=== PATIENT | female | born 1995 | race Caucasian/White ===

== ENCOUNTER 2016-09-01 04:40 | Inpatient (IN) | payer OTHER ==
[~2016-09-01] VITALS: Ht 175.3 cm; Wt 176.0 kg
[~2016-09-01 04:40] MED LIST: ALBUTEROL0.09 MG/A1 INH; ATIVAN0.5 M1 PO; BACTRIM DS 8001 TAB PO; BACTROBAN OINT.30 GM TOP; CEPHALEXIN500 MG PO; CLOBETASOL PROP50 M1 TOP; DEPO-PROVE150 MG/11 IM; DIPHENHYDRAMINE PO; DOXYCYCLINE HY100 MG PO; GENERESS FE 0.01 CTB PO; KEFLEX500 MG PO; LEVOTHROID SO0.05 MG PO; MEDROXYPROG150 MG/ML IM; METFORMIN ER500 MG PO; METFORMIN HYD1000 M1 PO; METOPROLOL SUC100 M2 PO; MOTRIN800 MG PO; PREDNISONE 20MG20 MG PO; PROAIR HFA0.09 MG/Ac INH; PROTONIX40 M3 PO; RIOMET500 MG/5 M PO; ROBITUSSIN W/CO10 ML PO; TAMIFLU 75MG75 MG; TOPROL XL25 M1 PO; TORADOL10 MG PO; VICODIN5-300 PO; ZITHROMAX Z-PA250 M1 PO
--- NOTE | 2016-09-01 12:06 | Admission Core Measures ---
Admission Lab Results I reviewed the following labs: Laboratory Tests 09/01 846 Urines Urine Test NEGATIVE Admission Meds I reviewed the following Meds: Current Medications Sig/Cierra Start time Last Medication Dose Stop Time Status Admin Cefazolin Sodium 3,000 MG ONCE 09/01 0000 NR (Kefzol-Ancef Inj) 09/01 2358 Heparin Sodium 5,000 UNIT ONCE 09/01 0000 NR (Porcine) 09/01 2358 Acute Coronary Syndrome Inclusion Criteria ACS Diagnosis No Inpatient Core Measures LDL Reminder: If No, please order W/I first 24hr of stay Congestive Heart Failure Inclusion Criteria CHF Diagnosis No Cerebrovascular accident Inclusion Criteria CVA/TIA Diagnosis No Inpatient Core Measures Bedside Swallow Eval Reminder: If BSE failed, place ST order Antithrombotic Reminder: Order Antithrombotic Medication by end of day 2 Antithrombotic Reminder: Document Reason Antithrombotic Not ordered by end of day 2 AFIB/Flutter Reminder: If Present, add to problem list AFIB/Flutter Reminder: Order Anticoag Medication for pts with AFIB/Flutter Atherosclerosis Reminder: If Present, add to problem list LDL Reminder: If No, please order W/I first 24hr of stay PT Order Reminder: If No, please order Venous thromboembolism Inpatient Core Measures VTE Risk Factors: Obesity, Oral contraception, Surgery No Mech VTE prophylaxis d/t No contraindications No VTE Pharm Prophylaxis d/t No contraindications Inclusion Criteria - Per Current guidelines, there needs to be overlap - treatment for the first 5 days of Warfarin therapy. - Parenteral Anticoagulation (IV or SC) needs to be - given along with Warfarin therapy. VTE Diagnosis No VTE Type NONE VTE Confirmed by (Test) NONE Problem List As ranked by this Provider includes Assessment & Plan 1. S/P laparoscopic sleeve gastrectomy HOME MEDS Home Med List Medroxyprogesterone Acetate (Depo-Provera) 150 MG/ML SYRINGE 1 ML IM Q3M CONTROL (Reported) Metoprolol Succinate 100 MG TAB.ER.24H 1 TAB PO DAILY HX V TACC (Reported) Pantoprazole Sodium (Protonix) 40 MG TABLET.DR 1 TAB PO DAILY PRN GERD ( Reported)
--- NOTE | 2016-09-01 12:15 | Operative Report ---
Operative/Inv Procedure Report Surgery Date: 09/01/16 Name of Procedure: Laparoscopic Sleeve Gastrectomy Pre-Operative Diagnosis: Morbid Obesity BMI 59, DM, HTN, KELLEY Post-Operative Diagnosis: Same Estimated Blood Loss: less than 50ml Surgeon/Escort Car Driver: CHARMAINE JOHANSEN DO Anesthesia: general endotracheal tube IV Fluids: 1600 cc Drains: 10 Fr RUQ JAIR Drain Specimens: Stomach Complications: None Condition: Stable Operative Indication: This is a 21-year-old female that presented to the office for workup for bariatric surgery. After appropriate workup was completed we discussed with the patient the band, the sleeve, and the gastric bypass. The patient chose to undergo a sleeve gastrectomy. All risks including but not limited to bleeding, infection, leak, stricture, injury to surrounding bowel/esophagus/stomach/liver/ spleen, long-term reflux, DVT/PE, and mortality of 05/999 patients were discussed in detail. The patient understood everything and decided to proceed. Operative/Procedure Note Note: The patient was brought to the operating room and placed on the operating room table in supine position. Venodyne stockings were placed and adequate general endotracheal anesthesia was obtained. The patient was prepped and draped in standard surgical fashion. Began the procedure by making a 2 cm transverse incision supraumbilically and slightly to the left of the midline. Then using a 12 mm clear Visiport and a 10 mm 0 laparoscope, the abdominal cavity was accessed. Great care was taken to go through the anterior rectus sheath, the posterior rectus sheath, and through the peritoneum. Once we entered the peritoneum the abdominal cavity was insufflated to 15 mmHg. Upon initial examination no obvious gross pathology was seen. Accessory trocars were placed, 5 mm in the epigastrium for the Mary liver retractor. The retractor was inserted and the liver was retracted anteriorly exposing the hiatus, no hiatal hernia was seen. 5 mm ports were placed in the right and left upper quadrant, a 5 mm left lateral port, and a 15 mm right lateral port. Began the procedure by mobilizing the greater curvature of the stomach approximately 7 cm from the pylorus. Once the retrogastric space was reached the whole greater curvature was mobilized maintaining hemostasis using Harmonic scalpel. Full hiatal dissection was performed, no hiatal hernia was seen. Posterior adhesions were taken down using Harmonic scalpel as well. Once the stomach was adequately mobilized a 38 Argentine bougie was inserted and placed along the lesser curvature of the stomach. Once the bougie was in the appropriate position will began creating our sleeve, two 60 mm black staple loads with seamguard followed by three 60 mm purple staple loads with seamguard as well and finished with 45 mm purple plain load. Great care was taken to leave ample room at the incisura angularis, to prevent any twisting or kinking of the sleeve, to stay lateral to the esophagogastric fat pad, and to do a full fundal excision. At the completion of the staple line the staple line was examined, it appeared intact and no obvious bleeding was noted. The bougie was removed, the sleeve was lying nicely without any twisting or kinking. The resected stomach was removed through the right lateral port site. The port and the left upper quadrant were irrigated until clear. A 10 Argentine JAIR drain was placed through the right upper quadrant incision under the liver and over the spleen. All ports were removed under direct visualization no obvious bleeding was noted. The 15 mm port site fascia was closed using 0 Vicryl suture. The skin was closed using 4-0 Monocryl. Steri-Strips and dressings were placed. The patient was successfully extubated and transferred to the recovery room in stable condition. The patient tolerated the procedure well with no complications. Findings: No hiatal hernia, 38 Fr bougie CC: MANDY FARLEY,CALEB Herrera
--- NOTE | 2016-09-01 15:24 | PN- Bariatrics ---
Subjective Subjective: The patient is seen this evening postoperatively. She reports some minor incisional discomfort and then she is otherwise comfortable. She had nausea earlier in the recovery room but currently currently denies any. She had no other complaints the current time denies any chest pain or difficulty breathing. Objective Vital Signs and I&Os Vital signs: Blood pressure 125/65, pulse 60, temperature 98.5, O2 sats saturation 97% on room air I's and O's: 2200 ML's in of lactated Ringer's/patient is due to void/JAIR 10 mL/ EBL less than 50 Physical Exam: Gen.: Alert and in no obvious distress Skin: Warm and dry Cardiac: S1-S2 regular Pulmonary: Bilateral breath sounds are equal and decreased at bases Abdomen: Soft, obese, appropriate incisional tenderness, bowel sounds sluggish. Port sites are slightly blood-tinged but otherwise intact. JAIR 1 holding suction with serosanguineous drainage in the bulb. Extremities: Bilateral lower extremities are warm without calf tenderness or significant edema. Assessment/Plan Assessment/Plan Assessment: 21-year-old female status post lap scopic sleeve gastrectomy. Postoperatively the patient is progressing as expected and her pain is under adequate control. Plan: Patient will be monitored on telemetry due to a history of SVT Stage I diet nothing by mouth past midnight for an upper GI in the morning Continue current pain regiment Strict I's and O's Monitor for postoperative void 2 doses of postoperative prophylactic antibiotics GI and DVT prophylaxis Lovenox education Out of bed and ambulate Core Measures/Miscellaneous Venous Thromboembolism VTE Risk Factors: Obesity, Surgery VTE Contraindications: No Contraindications VTE Diagnosis: No VTE Type: NONE VTE Confirmed by (Test): NONE Beta Jose Is Beta Jose a Home Med? Yes If Yes, Was This Ordered Today? Yes Antibiotics Is Patient on Antibiotics? Yes If Yes: prophylaxis
[2016-09-01 16:00] VITALS: BP 132/78
--- NOTE | 2016-09-01 23:59 | NUR ---
ALERTED SUFICAL PA THAT PT HAS BEEN BRADYCARDIC LOW 50. ALL OTHER VITALS STABLE. PT DENIES DIZZINESS, HEADACHE, CHANGES IN VISION. PER SUGICAL PA, WILL CONTINUE TO MONITOR.
[2016-09-02 00:04] VITALS: BP 132/72
--- NOTE | 2016-09-02 07:02 | PN- Bariatrics ---
See Addendum Subjective Subjective: The patient was seen this morning postoperatively day #1. She reports her pain is under adequate control and she was tolerating a stage I diet without nausea up until midnight. She had one bout of nausea in the middle the night which was self-limiting. She has no complaints at the current time. Objective Vital Signs and I&Os Vital Signs Date Time Temp Pulse Resp B/P Pulse O2 O2 Flow FiO2 Ox Delivery Rate 09/02 0004 98.3 50 20 132/72 95 Room Air 09/010 Room Air 09/01 2057 Room Air Room Air 09/02 1599 Room Air /1599 98.7 60 18 132/78 95 Room Air Intake & Output 09/02 0809/02 0000 09/01 0000 08/31 1600 Intake Total 1105 Output Total 630 Balance 475 Intake, IV 625 Intake, Oral 480 Output, 30 Drainage Output, Urine 600 Patient 389 lb Weight Physical Exam: Gen.: Alert and in no obvious distress Skin: Warm and dry Cardiac: S1-S2 regular Pulmonary: Bilateral breath sounds are equal and decreased at bases Abdomen: Soft, obese, appropriate incisional test, bowel sounds positive. Port sites are blood tinged but otherwise intact. JAIR 1 holding suction with serosanguineous drainage in the bulb. Extremities: Bilateral lower extremities are warm without calf tenderness or significant edema. Assessment/Plan Assessment/Plan Assessment: 21-year-old female status post lap scopic sleeve gastrectomy postoperative day #1. The patient is progressing as expected, her pain is under adequate control, and she is without nausea this morning. Plan: Cancel upper GI series this morning and start bariatric stage I diet Follow-up morning laboratory studies Out of bed and ambulate GI and DVT prophylaxis Lovenox education Reconsult nutrition for additional bariatric diet education Decrease IV fluids Core Measures/Miscellaneous Venous Thromboembolism VTE Risk Factors: Obesity, Surgery VTE Contraindications: No Contraindications VTE Diagnosis: No VTE Type: NONE VTE Confirmed by (Test): NONE Beta Jose Is Beta Jose a Home Med? Yes If Yes, Was This Ordered Today? Yes Antibiotics Is Patient on Antibiotics? No
[2016-09-02 08:01] VITALS: BP 122/64
[2016-09-02 08:23] LABS: ABSOLUTE BASOPHIL COUNT 0 /CUMM (0.0-0.2); ABSOLUTE EOSINOPHIL COUNT 0 /CUMM (0.0-0.7); ABSOLUTE GRANULOCYTE CT 8.2 /CUMM (1.4-6.5); ABSOLUTE MONOCYTE COUNT 0.5 /CUMM (0.10-0.60); BASOPHIL % 0.1 % (0.0-2.0); EOSINOPHIL % 0 % (0-5); HEMATOCRIT 38.9 % (37-47); MEAN CORPUSCULAR HGB 24.3 PG (27.0-31.0); MEAN CORPUSCULAR HGB CONC 31.9 G/DL (33.0-37.0); MEAN CORPUSCULAR VOLUME 76.3 FL (81.0-99.0); MEAN PLATELET VOLUME 10.6 FL (7.4-10.4); PLATELET COUNT 193 /CUMM (130-400); RBC DISTRIBUTION WIDTH 16.7 % (11.5-14.5); WHITE BLOOD CELL COUNT 9.7 /CUMM (4.8-10.8)
[2016-09-02 09:13] LABS: GRANULOCYTE % 84.5 % (42.2-75.2)
[2016-09-02] MEDS ORDERED: DILAUDID2 M1 PO (11:49)
[2016-09-02] MEDS ORDERED: MIRALAX17 G1 PO (11:49)
[2016-09-02] MEDS ORDERED: LOVENOX40 MG/0.1 SC ×2 (11:49→16:43)
[2016-09-02] MEDS ORDERED: COLACE100 M1 PO (11:49)
--- NOTE | 2016-09-02 11:57 | Patient Discharge Instructions ---
Discharge Instructions General Discharge Information You were seen/treated for: Morbid obesity You had these procedures: Laparoscopic Gastric sleeve Watch for these problems: persistent nausea, vomiting, increasing abdominal pain, temperature more than 101 any redness, unusual drainage from the incision site Do not soak the wound: Yes No bath, but you may shower: Yes Other wound care: Remove dressing when you get home leaving white strips intact until seen by your surgeon. Shower regularly but no bath Special Instructions: See pre-printed information packet Ambulate frequently May use Gas-X for gas pain Diet Continue normal diet: No Recommended Diet: Bariatric (YEARS), STAGE 2 DIET, POSTGASTRECTOMY DIET (THE) Activity Full Activity/No Limits: No Activity Self Limited: Yes Pounds, do NOT lift more than: 10 Activity Limited to: Weight bear as tolerated Acute Coronary Syndrome Inclusion Criteria At DC or during hospital stay patient has or had the following: ACS DIAGNOSIS No Discharge Core Measures Meds if any: Prescribed or Continued at Discharge Meds if any: NOT Prescribed or Continued at Discharge Congestive Heart Failure Inclusion Criteria At DC or during hospital stay patient has or had the following: CHF DIAGNOSIS No Discharge Core Measures Meds if any: Prescribed or Continued at Discharge Meds if any: NOT Prescribed or Continued at Discharge Cerebrovascular accident Inclusion Criteria At DC or during hospital stay patient has or had the following: CVA/TIA Diagnosis No Discharge Core Measures Meds if any: Prescribed or Continued at Discharge Meds if any: NOT Prescribed or Continued at Discharge Venous thromboembolism Inclusion Criteria VTE Diagnosis No VTE Type NONE VTE Confirmed by (Test) NONE Discharge Core Measures - Per Current guidelines, there needs to be overlap - treatment for the first 5 days of Warfarin therapy. - If discharged on Warfarin prior to 5 days of - overlap therapy, the patient will need to be - assessed for post discharge needs including - *Post discharge parental anticoagulation - *Warfarin and/or parental anticoagulation education - *Follow up date to check INR post discharge At least 5 days overlap therapy as Inpatient No Meds if any: Prescribed or Continued at Discharge Note: Overlap Therapy is Warfarin and Anticoagulant Meds if any: NOT Prescribed or Continued at Discharge
--- NOTE | 2016-09-02 12:05 | Discharge Summary ---
Visit Information Visit Dates Admission Date: 09/01/16 Discharge Date: 09/04/16 Hospital Course Course Attending Physician: CHARMAINE JOHANSEN DO Primary Care Physician: MANDY FARLEY,CALEB Herrera Consulting Request: Consulting Specialty: Cardiology Hospital Course: Patient was admitted after undergoing the scheduled procedure(laparoscopic sleeve gastrectomy) with Dr. Johansen.please see Dr. Conner's operative note for procedure detail. After a quick recovery in PACU she was admitted to surgical floor for postop care. She is tolerating a stage 1 bariatric diet. An upper GI study was deferred, as she has been doing well post-operatively. Post- op asymptomatic bradycardia, with heart rate in 40s-50s range, as she was monitored on telemetry continuously for a history of SVT. Her home med Toprol XL was held for several days post-op due to bradycardia. was consulted ( covering ) for evaluation and recommendations regarding this asymptomatic bradycardia. JAIR drain removed post-op day#2. Metoprolol was restarted at a lower dose on POD#2 evening, with continued monitoring on tele overnight to POD#3. Due to persistent "chest pain" that seemed pleuritic in nature, cardiology recommended pursuing a CTA to r/o PE on POD#3, which was finally done after multiple attempts at getting an adequate 20 guage peripheral iv, and was negative for PE. She was discharged home with adjusted dose of metoprolol, tramadol for pain, and lovenox (script given pre-op) to complete one week at home for blood clot risk reduction. She will follow up with next week. Complications: asymptomatic bradycardia, with metoprolol held post-op, in setting of hx SVT, metoprolol then restarted at 25 mg twice a day, postop day 3 patient was asymptomatic and heart rate improved Allergies: Coded Allergies: metformin (From GLUMETZA) (Mild, RASH SPECIFICALLY FROM GLUMETZA 08/24/15) pecan nut (Mild, RASH 08/24/15) Disposition Summary Disposition Principal Diagnosis: morbid obesity [BMI of 57], hx ana, hx gerd, hx asthma, hx SVT Additional Diagnosis: morbid obesity s/p lap sleeve gastrectomy post-operative asymptomatic bradycardia Discharge Disposition: home or self care Discharge Instructions General Discharge Information Code Status: Full Code Patient's Diet: stage 2 bariatric diet as tolerated weekly stage diet advancement, as directed, as tolerated Patient's Activity: No heavy lifting (less than 10 pounds ) ambulate as tolerated Follow-Up Instructions/Appts: hycet for pain control continue lovenox as prescribed continue protonix for 2-3 months post-op hold metoprolol until further directed by property economist due to bradycardia f/u with as directed f/u next week (appointment scheduled) Medications at Discharge Discharge Medications: Stop taking the following medications: Metoprolol Succinate (Metoprolol Succinate) 100 MG TAB.ER.24H ORAL DAILY Medroxyprogesterone Acetate (Depo-Provera) 150 MG/ML SYRINGE INTRAMUSC Every 3 months Continue taking these medications: Pantoprazole Sodium (Protonix) 40 MG TABLET.DR 1 Tablet ORAL DAILY Days = 60 Comments: Last Taken:09/04/16 Time:10 AM Start taking the following new medications: Enoxaparin Sodium (Lovenox) 40 MG/0.4 ML SYRINGE 1 Syringe Inject into fatty tissue DAILY Qty = 7 No Refills Instructions: PATIENT HAS PERSCRIPTION AT HOME Comments: Last Taken:09/04/16 Time:7 AM Metoprolol Tartrate (Metoprolol Tartrate) 25 MG TABLET 25 Milligram ORAL TWICE DAILY Qty = 60 No Refills Comments: Last Taken:09/04/16 Time:10 PM Hydrocodone/Acetaminophen (Hycet 7.5 MG-325 MG/15 Ml Soln) 7.5 MG-325 MG/15 ML SOLUTION 15 Milliliters ORAL Q4-6P as needed for PAIN Qty = 250 No Refills Tramadol HCl (Tramadol HCl) 50 MG TABLET 1 Tablet ORAL EVERY SIX HOURS NEEDED as needed for pain Qty = 30 No Refills Instructions: cush tablet Comments: Last Taken:09/04/16 Time:11 PM Copies To: MANDY FARLEY,CALEB Herrera; Annie FULTON MD; NIKOLAS CHEUNG MD
[2016-09-02 16:30] VITALS: BP 116/68
[2016-09-02] MEDS ORDERED: HYCET 7.5 MG-3473 ML PO (16:43)
--- NOTE | 2016-09-02 23:00 | NUR ---
NURSING NOTE; PT TOLERATING BARIATRIC STAGE 1 DIET. NOT PASSING FLATUS. MD AWARE. AMBULATING WELL IN HALLWAY. PT CONTINUES TO C/O 8/10 ABDOMINAL PAIN. "FEELS LIKE GAS PAIN" PAIN MEDS PRN WITH SOME EFFECT. RASH/IRRITAITON NOTED TO CHEEKS AND ALONG NOSE. NOT ITCHY, C/O "BURNING" MD AWARE. PT CONTINUES TO BE BRADYCARDIC AT TIMES. HR RANGING FROM 48-60 AT REST. HR INCREASED TO 80'S WHEN AMBULATING. ASYMPTOMATIC.
[2016-09-03 02:18] VITALS: BP 100/68
--- NOTE | 2016-09-03 08:09 | PN- Bariatrics ---
Subjective Subjective: No complaints. Ongoing asymptomatic bradycardia. No dizziness. No shortness of breath. Tolerating stage 1 bariatric diet. Some intermittent nausea unrelated to drinking. She is willing to try hycet elixir again. Passing flatus but no bm yet. Voiding well. Ambulating without difficulty. Anxious about her heart rate. Objective Vital Signs and I&Os Vital Signs Date Time Temp Pulse Resp B/P Pulse O2 O2 Flow FiO2 Ox Delivery Rate 09/03 0218 97.7 48 20 100/68 97 Room Air 09/03 0000 97 Room Air 09/02 1630 98.1 56 20 116/68 97 Room Air 09/02 1049 54 Intake & Output 09/03 1600 09/03 0800 09/03 0000 09/02 1600 09/02 0800 09/02 0000 Intake Total 0 9480 326 6037 1105 Output Total 10 25 5 902 630 Balance -10 975 895 128 475 Intake, IV 300 305 3779 625 Intake, Oral 0 400 300 30 480 Number 0 0 0 Bowel Movements Output, 10 25 5 2 30 Drainage Output, Urine 900 600 Patient 389 lb Weight Physical Exam: General - alert & oriented x 3. comfortable. no acute distress. Lungs - clear bilaterally. no w/r/r. Cardiac - s1s2. bradycardic, rate 40s-50s Abdomen - soft. dressings c/d/i. JAIR drain with serosang drainage (10mls emptied overnight). expected rita-incisional tenderness. Extremities - warm bilaterally. no c/c/e. calves soft and nontender b/l. Assessment/Plan Assessment/Plan This 21-year-old female with hx svt, ana, gerd, asthma, is POD#2 s/p lap sleeve gastrectomy, ongoing asymptomatic bradycardia tolerating stage 1 bariatric diet willing to try hycet elixir again for pain control lovenox teaching prior discharge home continue protonix daily - gi ppx continue to hold metoprolol f/u ekg and labs f/u cardiology consult (tani on vacation, covering) oob/ambulating JAIR drain removed likely d/c home today pending cleared by cards will d/w Core Measures/Miscellaneous Venous Thromboembolism VTE Risk Factors: Obesity, Surgery VTE Contraindications: No Contraindications VTE Diagnosis: No VTE Type: NONE VTE Confirmed by (Test): NONE Beta Jose Is Beta Jose a Home Med? Yes If Yes, Was This Ordered Today? Yes Antibiotics Is Patient on Antibiotics? No
[2016-09-03 08:29] VITALS: BP 124/68
--- NOTE | 2016-09-03 09:20 | Cons- Cardiology ---
GIOVANA FARLEY,AZAM 09/03/16 0919: General Information and HPI Consulting Request Date of Consult: 09/03/16 Requested By: CHARMAINE JOHANSEN DO Reason for Consult: POST-OP BRADYCARDIA Source of Information: patient Exam Limitations: no limitations History of Present Illness: Miss Victor is a 21 year old female, with a medical history of supraventricular tachycardia versus nonsustained ventricular tachycardia (patient unsure which one it is, sees Dr. Quijano), insulin resistance who recently underwent sleeve gastrectomy 2 days ago. She states that initially the symptoms of palpitations started over a year ago she saw Dr. Ellis and was started on metoprolol 25 mg. Prior to her bariatric surgery, cardiac clearance was requested, she underwent an exercise stress test and upon 30 seconds of exercise, recurrent ventricular tachyarrhythmia was noted, she saw Dr. Quijano and her metoprolol was increased to 100 mg daily. We were asked to see her in consultation as postop she has persistently been bradycardic with a heart rate in the 40s and 50s. At present she is sitting comfortably in her recliner, offers no complaints other than her abdomen being sore postoperatively. Admits to having one episode of chest pain yesterday evening. States that while in the operating room the anesthesiologist did give her an extra beta dung in order to avoid these tachyarrhythmias. She did not get her beta dung yesterday. Allergies/Medications Allergies: Coded Allergies: metformin (From GLUMETZA) (Mild, RASH SPECIFICALLY FROM GLUMETZA 08/24/15) pecan nut (Mild, RASH 08/24/15) Home Med List: Enoxaparin Sodium (Lovenox) 40 MG/0.4 ML SYRINGE 1 SYR SC DAILY DVT PROPHYLAXSIS PATIENT HAS PERSCRIPTION AT HOME Hydrocodone/Acetaminophen (Hycet 7.5 MG-325 MG/15 Ml Soln) 7.5 MG-325 MG/15 ML SOLUTION 15 ML PO Q4-6P PRN PAIN Medroxyprogesterone Acetate (Depo-Provera) 150 MG/ML SYRINGE 1 ML IM Q3M CONTROL (Reported) Metoprolol Succinate 100 MG TAB.ER.24H 1 TAB PO DAILY HX V TACC (Reported) Pantoprazole Sodium (Protonix) 40 MG TABLET.DR 1 TAB PO DAILY ulcer risk reduction (Reported) Review of Systems Review of Systems Constitutional: Reports: see HPI. 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 Home Smoking Status: Unknown If Ever Smoked Exam & Diagnostic Data Vital Signs and I&O Vital Signs Date Time Temp Pulse Resp B/P Pulse O2 O2 Flow FiO2 Ox Delivery Rate 09/03 0829 98.6 72 20 124/68 97 Room Air 09/03 0218 97.7 48 20 100/68 97 Room Air 09/03 0000 97 Room Air 09/02 1630 98.1 56 20 116/68 97 Room Air 09/02 1049 54 Intake & Output 09/03 1600 09/03 0800 / 0000 09/02 1600 09/02 0800 / 0000 Intake Total 0 7036 480 3574 1105 Output Total 10 25 5 902 630 Balance -10 975 895 128 475 Intake, IV 150 208 0421 625 Intake, Oral 0 400 300 30 480 Number 0 0 0 Bowel Movements Output, 10 25 5 2 30 Drainage Output, Urine 900 600 Patient 389 lb Weight Physical Exam General Appearance: well developed/nourished, no apparent distress, alert, awake Eyes: Bilateral: normal appearance, PERRL, EOMI. Ears, Nose, Throat: normal pharynx, normal ENT inspection Respiratory: normal breath sounds, chest non-tender, no respiratory distress Cardiovascular: regular rate/rhythm Gastrointestinal: normal bowel sounds, soft, non-tender Extremities: normal inspection, normal capillary refill, normal range of motion Labs/Vargas Results: Laboratory Tests 09/03 09/02 0820 0643 Chemistry Sodium Pending Potassium Pending Chloride Pending Carbon Dioxide Pending Anion Gap Pending BUN Pending Creatinine Pending BUN/Creatinine Ratio Pending Glucose Pending Magnesium Pending Hematology CBC w Diff Pending NO MAN DIFF REQ WBC (4.8 - 10.8 /CUMM) Pending 9.7 RBC (4.20 - 5.40 /CUMM) Pending 5.10 Hgb (12.0 - 16.0 G/DL) Pending 12.4 Hct (37 - 47 %) Pending 38.9 MCV (81.0 - 99.0 FL) Pending 76.3 L MCH (27.0 - 31.0 PG) Pending 24.3 L RDW (11.5 - 14.5 %) Pending 16.7 H Plt Count (130 - 400 /CUMM) Pending 193 MPV (7.4 - 10.4 FL) Pending 10.6 H Gran % (42.2 - 75.2 %) 84.5 H Lymphocytes % (20.5 - 51.1 %) 10.5 L Monocytes % (1.7 - 9.3 %) 4.9 Eosinophils % (0 - 5 %) 0 Basophils % (0.0 - 2.0 %) 0.1 Absolute Granulocytes (1.4 - 6.5 /CUMM) 8.2 H Absolute Lymphocytes (1.2 - 3.4 /CUMM) 1.0 L Absolute Monocytes (0.10 - 0.60 /CUMM) 0.5 Absolute Eosinophils (0.0 - 0.7 /CUMM) 0 Absolute Basophils (0.0 - 0.2 /CUMM) 0 PUBS MCHC (33.0 - 37.0 G/DL) Pending 31.9 L Diagnostic Data EKG Results Rate 52, normal intervals, sinus bradycardia Assessment/Plan Assessment/Plan Assessment- 1. Postoperative bradycardia, unclear etiology 2. Insulin resistance 3. History of SVT versus nonsustained VT (we do not have previous cardiology reports) 4. Postop day 2 status post sleeve gastrectomy Plan- - hold beta dung for now - Continue telemetry monitoring - Add on troponin to yesterday's labs, and today's labs - Add on thyroid studies to today's labs - Urgent echocardiogram, r/o regional wall motion abnormalities - Electrolytes from this morning's blood draw still pending Consult Acknowledgment - Thank you for your consult request. KIRSTIN FARLEY,MARISA Maurice 09/03/16 8820: Assessment/Plan Assessment/Plan Attending addendum: The patient was seen and examined by me. The case was discussed with the patient, her mother, and the house staff physicians. All available data, including EKGs were reviewed by me. The patient appears to be generally stable postoperatively. I will follow her outside cardiology records. Her bradycardia is likely related to her beta blockers. In view of her past history, her beta dung dose should be continued. Consider restarting at 25 BID today and reassess in AM for increasing back to outpatient dose. Otherwise, the sinus bradycardia does not appear to be a major issue. Otherwise, the patient has been having episodes of central chest discomfort postoperatively. These episodes are intermittent. She notes that there is a slight pleuritic component to the discomfort when present. As noted above, follow-up EKG, troponin, etc. pending. For now, I would monitor the patient overnight pending those results. If she remains stable, and her symptoms improve, and the above is unremarkable, consider discharge in 24 hours. If the above findings are unremarkable, and the patient's symptoms are persistent, reassess for other possible issues such as occult pulmonary emboli, etc. Consult Acknowledgment - Thank you for your consult request.
[2016-09-03 09:26] LABS: ABSOLUTE BASOPHIL COUNT 0 /CUMM (0.0-0.2); ABSOLUTE EOSINOPHIL COUNT 0 /CUMM (0.0-0.7); ABSOLUTE LYMPH COUNT 3.4 /CUMM (1.2-3.4); ABSOLUTE MONOCYTE COUNT 0.6 /CUMM (0.10-0.60); BASOPHIL % 0.3 % (0.0-2.0); EOSINOPHIL % 0.1 % (0-5); GRANULOCYTE % 55.4 % (42.2-75.2); MEAN CORPUSCULAR HGB 24.6 PG (27.0-31.0); MEAN CORPUSCULAR HGB CONC 32.5 G/DL (33.0-37.0); MEAN CORPUSCULAR VOLUME 75.6 FL (81.0-99.0); MEAN PLATELET VOLUME 10.7 FL (7.4-10.4); PLATELET COUNT 195 /CUMM (130-400); RED BLOOD CELL CT 5.16 /CUMM (4.20-5.40); WHITE BLOOD CELL COUNT 8.9 /CUMM (4.8-10.8)
[2016-09-03 16:33] VITALS: BP 110/64
--- NOTE | 2016-09-03 17:56 | NUR ---
LATE ENTRY - REPORTED TO KALA CLINTON THAT PATIENT CONTINUES TO BE NAUSEOUS AND IS NOT TAKING PO LIQUIDS WELL; JHONATHAN DID NOT WORK FOR HER THIS AM. KALA ORDERED REGLAN IV & THIS RN ADMINISTERED THIS MED.
--- NOTE | 2016-09-03 19:52 | ECHOCARDIOGRAM REPORT ---
LINDA ARSHAD Age: 21 : 1995 Gender: F Exam Date: 09/03/2016 11:24 Exam Location: [place] Ht (in): 69 Wt (lb): 389 BSA: 3.04 BP: 124 / 68 Ordering Physician: SIMRAN LEO PA Referring Physician: SIMRAN LEO PA Technologist: Emanuel Post Room Number: Indications: CHEST PAIN, ARRHYTHMIAS Rhythm: Sinus Technical Quality: Fair, Technically difficult study FINDINGS Left Ventricle Normal size left ventricle. No obvious regional wall motion abnormalities. Normal left ventricular ejection fraction estimated at 55-60%. Right Ventricle Right ventricle not well visualized, grossly normal. Right ventricle at upper limits of normal. Right Atrium Normal right atrial size. Left Atrium Mild left atrial dilatation. Mitral Valve Mitral valve thickened. Trace to mild mitral regurgitation. Aortic Valve Structurally normal trileaflet aortic valve. No aortic stenosis. No aortic regurgitation. Tricuspid Valve Tricuspid valve not well visualized, grossly normal. Trace to mild tricuspid regurgitation. Pulmonic Valve Pulmonic valve not well visualized, grossly normal. Pericardium No pericardial effusion. Great Vessels Aortic root and proximal ascending aorta not well visualized, grossly normal. CONCLUSIONS 1. This was a technically limited examination due to the patients body habitus 2. The aortic valve appears to be trileaflet and normal. 3. Mild thickening of the mitral leaflets is present with minimal to mild mitral insufficiency and mild left atrial enlargement. 4. There is no significant pericardial fluid present. 5. The left ventricular chamber size and systolic function appear normal. Accurate wall motion assessment was not possible due to the quality of the images obtained. 6. The right heart structures were not optimally assessed. Minimal to mild tricuspid insufficiency is present with no evidence of pulmonary hypertension. Jorge Garcia M.D. (Electronically Signed) Final Date: 03 September 2016 19:52 MEASUREMENTS (Male / Female) Normal Values 2D ECHO LV Diastolic Diameter PLAX 5.4 cm 4.2 - 5.9 / 3.9 - 5.3 cm LV Systolic Diameter PLAX 3.6 cm 2.1 - 4.0 cm LV Fractional Shortening PLAX 33.3 % 25 - 46 % LV Ejection Fraction 2D Teich 61.5 % IVS Diastolic Thickness 1.1 cm LVPW Diastolic Thickness 1.0 cm LV Relative Wall Thickness 0.4 LVOT Diameter 2.4 cm Aortic Root Diameter 2.6 cm LA Systolic Diameter LX 3.3 cm 3.0 - 4.0 / 2.7 - 3.8 cm DOPPLER AV Peak Velocity 154.0 cm/s AV Peak Gradient 9.5 mmHg AV Mean Velocity 106.0 cm/s AV Mean Gradient 5.0 mmHg AV Velocity Time Integral 33.8 cm LVOT Peak Velocity 119.0 cm/s LVOT Peak Gradient 5.7 mmHg LVOT Mean Velocity 73.8 cm/s LVOT Mean Gradient 3.0 mmHg LVOT Velocity Time Integral 27.2 cm LVOT Stroke Volume 123.0 cm AV Area Cont Eq vti 3.6 cm AV Area Cont Eq pk 3.5 cm Mitral E Point Velocity 147.5 cm/s Mitral A Point Velocity 44.4 cm/s Mitral E to A Ratio 3.3 MV Deceleration Time 165.0 ms MR Peak Velocity 385.0 cm/s MR Peak Gradient 59.3 mmHg TR Peak Velocity 287.0 cm/s TR Peak Gradient 32.9 mmHg Right Atrial Pressure 5.0 mmHg Pulmonary Artery Systolic Pressu 37.9 mmHg Right Ventricular Systolic Press 37.9 mmHg PV Peak Velocity 107.0 cm/s PV Peak Gradient 4.6 mmHg PV Mean Velocity 75.1 cm/s PV Mean Gradient 2.0 mmHg PV Velocity Time Integral 24.8 cm LV E' Lateral Velocity 16.1 cm/s Mitral E to LV E' Lateral Ratio 9.2 LV E' Septal Velocity 9.7 cm/s Mitral E to LV E' Septal Ratio 15.3
[2016-09-04 07:43] VITALS: BP 118/70
[2016-09-04 07:53] LABS: ABSOLUTE BASOPHIL COUNT 0 /CUMM (0.0-0.2); ABSOLUTE EOSINOPHIL COUNT 0 /CUMM (0.0-0.7); ABSOLUTE GRANULOCYTE CT 5.9 /CUMM (1.4-6.5); ABSOLUTE LYMPH COUNT 0.9 /CUMM (1.2-3.4); ABSOLUTE MONOCYTE COUNT 0.1 /CUMM (0.10-0.60); BASOPHIL % 0.1 % (0.0-2.0); EOSINOPHIL % 0.1 % (0-5); HEMATOCRIT 38.8 % (37-47); MEAN CORPUSCULAR HGB 24.3 PG (27.0-31.0); MEAN CORPUSCULAR HGB CONC 31.8 G/DL (33.0-37.0); MEAN CORPUSCULAR VOLUME 76.2 FL (81.0-99.0); MEAN PLATELET VOLUME 10.5 FL (7.4-10.4); PLATELET COUNT 197 /CUMM (130-400); RED BLOOD CELL CT 5.09 /CUMM (4.20-5.40); WHITE BLOOD CELL COUNT 6.9 /CUMM (4.8-10.8)
[2016-09-04 08:09] LABS: GRANULOCYTE % 84.6 % (42.2-75.2)
--- NOTE | 2016-09-04 09:57 | PN- Bariatrics ---
See Addendum Subjective Subjective: Postop day 3 status post laparoscopic sleeve gastrectomy. Patient woke this morning feeling well, no nausea, no vomiting, she is passing gas however no bowel movement yet. She has no fever or flulike illness. She has no symptoms of bradycardia feeling lightheaded dizzy or weak. Overall she feels much better today than yesterday. Objective Vital Signs and I&Os Vital Signs Date Time Temp Pulse Resp B/P Pulse O2 O2 Flow FiO2 Ox Delivery Rate 09/04 0643 98.6 48 118/70 97 09/03 2200 97 Room Air 09/03 2152 63 09/03 1739 61 110/64 09/03 1633 99.1 60 20 110/64 97 Room Air 09/03 1400 97 Room Air Intake & Output 09/04 1600 09/04 0800 09/04 0000 09/03 1600 09/04 0700 09/03 0000 Intake Total 660 900 660 0 1000 Output Total 10 25 Balance 660 900 660 -10 975 Intake, IV 600 600 600 600 Intake, Oral 60 300 60 0 400 Number 0 0 0 0 0 Bowel Movements Output, 10 25 Drainage Physical Exam: Well-developed well-nourished obese female no apparent distress. HEENT: Atraumatic, extraocular motion intact Neck: Supple, no lymphadenopathy Respiratory: No respiratory distress Heart rate is regular Abdomen: Obese, soft, nontender, nondistended, portal sites are clean dry and intact Extremities: No edema, no calf pain Neuro: Alert and oriented x3 Psych: Mood affect normal, normal memory normal judgment. Skin: Warm and dry, no rash on exposed skin Results Last 48 Hours of Labs: Laboratory Tests 09/04 09/03 0610 1435 Chemistry Sodium (137 - 145 mmol/L) 141 Potassium (3.5 - 5.1 mmol/L) 4.3 Chloride (98 - 107 mmol/L) 111 H Carbon Dioxide (22 - 30 mmol/L) 20 L Anion Gap (5 - 16) 11 BUN (7 - 17 mg/dL) 7 Creatinine (0.5 - 1.0 mg/dL) 0.6 Estimated GFR (>60 ml/min) > 60 BUN/Creatinine Ratio (7 - 25 %) 11.7 Troponin I (< 0.11 ng/ml) < 0.01 < 0.01 Hematology CBC w Diff MAN DIFF ORDERED WBC (4.8 - 10.8 /CUMM) 6.9 RBC (4.20 - 5.40 /CUMM) 5.09 Hgb (12.0 - 16.0 G/DL) 12.3 Hct (37 - 47 %) 38.8 MCV (81.0 - 99.0 FL) 76.2 L MCH (27.0 - 31.0 PG) 24.3 L RDW (11.5 - 14.5 %) 17.0 H Plt Count (130 - 400 /CUMM) 197 MPV (7.4 - 10.4 FL) 10.5 H Gran % (42.2 - 75.2 %) 84.6 H Lymphocytes % (20.5 - 51.1 %) 13.5 L Monocytes % (1.7 - 9.3 %) 1.7 Eosinophils % (0 - 5 %) 0.1 Basophils % (0.0 - 2.0 %) 0.1 Absolute Granulocytes (1.4 - 6.5 /CUMM) 5.9 Absolute Lymphocytes (1.2 - 3.4 /CUMM) 0.9 L Absolute Monocytes (0.10 - 0.60 /CUMM) 0.1 L Absolute Eosinophils (0.0 - 0.7 /CUMM) 0 Absolute Basophils (0.0 - 0.2 /CUMM) 0 Platelet Estimate (ADEQUATE) VERIFIED BY SMEAR Hypochromic-Microcytic 1+ Poikilocytosis 1+ Anisocytosis 1+ Microcytic Cells 1+ Ovalocytes 1+ [place] Cells 1+ PUBS MCHC (33.0 - 37.0 G/DL) 31.8 L / 0820 Chemistry Sodium (137 - 145 mmol/L) 144 Potassium (3.5 - 5.1 mmol/L) 4.1 Chloride (98 - 107 mmol/L) 113 H Carbon Dioxide (22 - 30 mmol/L) 21 L Anion Gap (5 - 16) 10 BUN (7 - 17 mg/dL) 8 Creatinine (0.5 - 1.0 mg/dL) 0.7 Estimated GFR (>60 ml/min) > 60 BUN/Creatinine Ratio (7 - 25 %) 11.4 Glucose (65 - 99 mg/dL) 81 Magnesium (1.6 - 2.3 mg/dL) 1.8 Troponin I (< 0.11 ng/ml) < 0.01 TSH (0.270 - 4.200 uIU/mL) 3.130 Thyroxine (T4) (4.5 - 10.9 ug/dL) 11.0 H Total T3 (0.97 - 1.69 ng/mL) 0.95 L Cortisol AM Sample (4.46 - 22.7 ug/dL) 1.0 L Hematology CBC w Diff NO MAN DIFF REQ WBC (4.8 - 10.8 /CUMM) 8.9 RBC (4.20 - 5.40 /CUMM) 5.16 Hgb (12.0 - 16.0 G/DL) 12.7 Hct (37 - 47 %) 39.0 MCV (81.0 - 99.0 FL) 75.6 L MCH (27.0 - 31.0 PG) 24.6 L RDW (11.5 - 14.5 %) 17.0 H Plt Count (130 - 400 /CUMM) 195 MPV (7.4 - 10.4 FL) 10.7 H Gran % (42.2 - 75.2 %) 55.4 Lymphocytes % (20.5 - 51.1 %) 37.6 Monocytes % (1.7 - 9.3 %) 6.6 Eosinophils % (0 - 5 %) 0.1 Basophils % (0.0 - 2.0 %) 0.3 Absolute Granulocytes (1.4 - 6.5 /CUMM) 5.0 Absolute Lymphocytes (1.2 - 3.4 /CUMM) 3.4 Absolute Monocytes (0.10 - 0.60 /CUMM) 0.6 Absolute Eosinophils (0.0 - 0.7 /CUMM) 0 Absolute Basophils (0.0 - 0.2 /CUMM) 0 PUBS MCHC (33.0 - 37.0 G/DL) 32.5 L Assessment/Plan Assessment/Plan This 21-year-old female with hx svt, ana, gerd, asthma, is POD#3 s/p lap sleeve gastrectomy tolerating stage 1 bariatric diet, advance to stage II lovenox teaching prior discharge home labs wnl this am continue protonix daily - gi ppx Appreciate cardiology input, heart rate better overnight, will await final cardiology input this morning prior to discharge oob/ambulating likely d/c home today pending cleared by cards Patient seen and examined with Dr. Matias Core Measures/Miscellaneous Venous Thromboembolism VTE Risk Factors: Obesity, Surgery VTE Contraindications: No Contraindications VTE Diagnosis: No VTE Type: NONE VTE Confirmed by (Test): NONE Beta Jose Is Beta Jose a Home Med? Yes If Yes, Was This Ordered Today? Yes Antibiotics Is Patient on Antibiotics? No
[2016-09-04] MEDS ORDERED: TRAMADOL HCL50 M1 PO (10:02)
[2016-09-04] MEDS ORDERED: METOPROLOL TART25 M1 PO (15:36)
--- NOTE | 2016-09-04 15:59 | PN- Cardiology ---
Subjective Subjective: Ambulating well, but continues to have chest discomfort "gas pain". This feels worse when she lays down and improves when she sits up or lays on her right side. She thinks it feels improved after she takes medication for "gas". On telemetry her heart rate has varied from 46-70 bpm on metoprolol 25 mg twice daily. This was decreased from the 50 mg twice daily she had been on for previously documented VT. Objective Vital Signs and I&Os Vital Signs Date Time Temp Pulse Resp B/P Pulse O2 O2 Flow FiO2 Ox Delivery Rate 09/04 1000 60 118/70 09/04 0743 98.6 48 118/70 97 09/03 2200 97 Room Air 09/03 2152 63 09/03 1739 61 110/64 09/03 1633 99.1 60 20 110/64 97 Room Air Intake & Output 09/04 1600 09/04 0800 09/04 0000 09/03 1600 09/03 0800 09/03 0000 Intake Total 660 900 660 0 1000 Output Total 10 25 Balance 660 900 660 -10 975 Intake, IV 600 600 600 600 Intake, Oral 60 300 60 0 400 Number 0 0 0 0 0 Bowel Movements Output, 10 25 Drainage Patient 388 lb Weight Physical Exam: Well-developed, morbidly obese young adult female in no acute distress. Lungs: Clear to auscultation bilaterally. Heart: S1, S2 with no murmur, gallop, or rub appreciated. I not well felt. Extremities: No edema. Current Medications: Current Medications Sig/Cierra Start time Last Medication Dose Route Stop Time Status Admin Acetaminophen 1,000 MG Q6P PRN 09/02 2245 AC 09/03 N/A 1 UNIT IV 0657 Acetaminophen/ 15 ML Q6P PRN 09/01 1630 AC 09/03 Hydrocodone Bitart PO 1734 Bisacodyl 10 MG ONCE ONE 09/04 08 DC CA 09/04 0801 Dexamethasone 8 MG ONCE ONE 09/03 1730 DC 09/03 IV PUSH 09/03 1731 2256 Dextrose/Sodium 1,000 ML Q13H 09/03 2315 DC 09/03 Chloride IV 2328 Enoxaparin Sodium 40 MG 0600 09/02 0600 AC 09/04 SC 0649 Ketorolac 30 MG Q6 09/03 2359 AC Tromethamine IV Ketorolac 30 MG Q6P PRN 09/01 1630 DC 09/02 Tromethamine IV 1947 Metoprolol Tartrate 25 MG BID 09/03 1430 AC 09/04 PO 1000 Ondansetron HCl 4 MG Q6P PRN 09/01 1630 AC 09/03 IV 0944 Pantoprazole Sodium 40 MG DAILY 09/01 1211 AC 09/04 IV 0958 Potassium Chloride 20 MEQ Q8H 09/01 2300 DC 09/03 Dextrose/Sodium 1,000 ML IV 1735 Chloride Simethicone 80 MG Q6P PRN 09/03 2330 AC 09/04 PO 1524 Simethicone 40 MG Q6P PRN 09/01 1630 DC 09/03 PO 1445 Tramadol HCl 100 MG Q4 PRN 09/03 1945 CAN PO Tramadol HCl 50 MG Q4P PRN 09/03 1930 AC 09/04 PO 1234 Results Last 48 Hrs of Labs/Mics: Laboratory Tests 09/04/16 0610: Anion Gap 11, Estimated GFR > 60, BUN/Creatinine Ratio 11.7, Troponin I < 0.01, CBC w Diff MAN DIFF ORDERED, RBC 5.09, MCV 76.2 L, MCH 24.3 L, RDW 17.0 H, MPV 10.5 H, Gran % 84.6 H, Lymphocytes % 13.5 L, Monocytes % 1.7, Eosinophils % 0.1, Basophils % 0.1, Absolute Granulocytes 5.9, Absolute Lymphocytes 0.9 L, Absolute Monocytes 0.1 L, Absolute Eosinophils 0, Absolute Basophils 0, Platelet Estimate VERIFIED BY SMEAR, Hypochromic-Microcytic 1+, Poikilocytosis 1 +, Anisocytosis 1+, Microcytic Cells 1+, Ovalocytes 1+, [place] Cells 1+, PUBS MCHC 31.8 L 09/03/16 1435: Troponin I < 0.01 09/03/16 0820: Anion Gap 10, Estimated GFR > 60, BUN/Creatinine Ratio 11.4, Glucose 81, Magnesium 1.8, Troponin I < 0.01, TSH 3.130, Thyroxine (T4) 11.0 H, Total T3 0.95 L, Cortisol AM Sample 1.0 L, CBC w Diff NO MAN DIFF REQ, RBC 5.16, MCV 75.6 L, MCH 24.6 L, RDW 17.0 H, MPV 10.7 H, Gran % 55.4, Lymphocytes % 37.6, Monocytes % 6.6, Eosinophils % 0.1, Basophils % 0.3, Absolute Granulocytes 5.0, Absolute Lymphocytes 3.4, Absolute Monocytes 0.6, Absolute Eosinophils 0, Absolute Basophils 0, PUBS MCHC 32.5 L Assessment/Plan Assessment/Plan 21-year-old morbidly obese female s/p bariatric (gastric sleeve) with previously documented T for which she was placed on beta dung therapy, that had to be held and then restarted at a lower dosage (metoprolol 25 mg twice daily) as a result of who has also been complaining of recurrent chest discomfort with a pleuritic component. As her heart rate has still been on the relatively slow side, would continue her on the metoprolol 25 mg twice daily and have her follow-up with her attending editing internship/die repairer trimmer dies (Drs. Ellis and Macie) for further outpatient evaluation and management. Unfortunately, the CT scan is "down" and will not be up and running until at least 7 PM tonight and there are multiple patients in the ED for whom CT scanning has already been. Discussed management options with surgery and the plan will be to have her get d -dimer, NT-PRO BNP, and troponin I levels and follow-up with a CT scan if any are significantly elevated. Continue telemetry? Yes symptoms of palpitations started over a year ago she saw Dr. Ellis and was started on metoprolol 25 mg. Prior to her bariatric surgery, cardiac clearance was requested, she underwent an exercise stress test and upon 30 seconds of exercise, recurrent ventricular tachyarrhythmia was noted, she saw Dr. Quijano and her metoprolol was increased to 100 mg daily. We were asked to see her in consultation as postop she has persistently been bradycardic with a heart rate in the 40s and 50s. At present she is sitting comfortably in her recliner, offers no complaints other than her abdomen being sore postoperatively. Admits to having one episode of chest pain yesterday evening. States that while in the operating room the anesthesiologist did give her an extra beta dung in order to avoid these tachyarrhythmias. She did not get her beta dung yesterday. Continue telemetry? Yes
[2016-09-04 16:00] VITALS: BP 116/74
[2016-09-04 21:50] VITALS: BP 118/60
--- NOTE | 2016-09-04 22:56 | NUR ---
LATE NURSING ENTRY: CT ANGIO ORDERED, PATIENT DOES NOT HAVE SUFFICIENT IV ACCESS MULTIPLE UNSUCCESFUL ATTEMPTS BY MULTIPLE RN'S INCLUDING NURSE GROUNDS CREW SUPERVISOR. SURGICAL PA MADE AWARE AND IN ROOM WITH FAMILY. PATIENT VSS, PATIENT UNDERSTAND PLAN. WCTM.
--- NOTE | 2016-09-04 23:17 | CT SCAN REPORT ---
EXAMINATION: CT ANGIOGRAM OF THE CHEST WITH AND WITHOUT CONTRAST (CT PULMONARY ANGIOGRAM FOR PE) CLINICAL INFORMATION: Chest pain. Evaluate for pulmonary embolism. COMPARISON: CT chest 11/24/2015. TECHNIQUE: Prior to contrast administration, noncontrast localization images were obtained. Subsequently, multidetector volumetric imaging was performed from the thoracic inlet to below the diaphragms following the administration of 90 mL Optiray 350 intravenous contrast. No contrast reaction reported. Sagittal, coronal, and MIP oblique sagittal reformatted images were obtained on the CT workstation, uploaded to PACS, and reviewed. Total exam dose-length product 632 mGy-cm. FINDINGS: QUALITY OF STUDY/CONTRAST BOLUS: Adequate contrast opacification of the pulmonary arterial vasculature. PULMONARY ARTERIES: No evidence of pulmonary embolism to the level of the subsegmental pulmonary arteries. No large central pulmonary emboli. THORACIC AORTA: Normal caliber of the thoracic aorta, without aneurysmal dilatation or dissection. LUNG: Mild pulmonary hypoinflation. No focal airspace consolidation to suggest infection. No suspicious pulmonary nodules or masses. Patent central airways. PLEURA: No pleural effusion or pneumothorax. MEDIASTINUM: Normal heart size. No pericardial effusion. No hilar or mediastinal lymphadenopathy. No evidence of septal bowing or right heart strain. CHEST WALL/AXILLA: No axillary or internal mammary lymphadenopathy. OSSEOUS STRUCTURES: No acute or suspicious osseous abnormality. UPPER ABDOMEN: No acute findings within the upper abdomen. Incidental note is made of several ill-defined hypoattenuating lesions within the liver visualized measuring up to 2.1 x 2.1 cm within the right hepatic lobe. There is an additional ill-defined hypoattenuating lesion within the right hepatic lobe measuring 1.4 x 1.5 cm. Postsurgical changes related to gastric bypass procedure. No reflux of contrast into the hepatic veins to suggest elevated right heart pressures. IMPRESSION: 1. Adequate contrast opacification of the pulmonary arterial vasculature, without evidence of pulmonary embolism. No large central pulmonary emboli. 2. Incidental note is made of several ill-defined hypoattenuating lesions within the liver, visualized measuring up to 2.1 x 2.1 cm within the right hepatic lobe. These lesions are incompletely characterized on this examination but may reflect hepatic hemangiomas. A nonemergent outpatient ultrasound may be obtained for further evaluation. 3. Postsurgical changes related to interval gastric sleeve bypass. No acute findings within the upper abdomen. VTE: Negative.
== END 2016-09-04 23:30 | DRG 403 ==
LOC: ENRESERVTM → ENRESERVDT → 1NO 04:40 → SDA 04:40 → EDBEDREQ 12:56 → 1NO 15:54
PROVIDERS: Nurse Practitioner; Physician Assistant; Physician Assistant Surgical; ADMIT Surgery
PROC: 0DB64Z3 Excision of Stomach, Percutaneous Endoscopic Approach, Vertical (ICD-10-PCS; principal; 2016-09-01)
DX: E66.01 Morbid (severe) obesity due to excess calories (principal); Z68.43 Body mass index [BMI] 50.0-59.9, adult; I10 Essential (primary) hypertension; G47.33 Obstructive sleep apnea (adult) (pediatric); E11.9 Type 2 diabetes mellitus without complications; J45.909 Unspecified asthma, uncomplicated; K21.9 Gastro-esophageal reflux disease without esophagitis
CPT/HCPCS: 1NP; 36415; 81025; 82436; 88307; 93005; 93010; 93306; C9399; J0131; J0690; J1100; J1170; J1644; J1650; J1885; J2060; J2405; J2765; J7042; J7508; S5012

== ENCOUNTER 2016-09-09 22:05 | Emergency (ER) | payer OTHER ==
[~2016-09-09] VITALS: Ht 175.3 cm; Wt 172.4 kg
[~2016-09-09 22:05] MED LIST changes: +COLACE100 M1 PO; +DILAUDID2 M1 PO; +HYCET 7.5 MG-3473 ML PO; +LOVENOX40 MG/0.1 SC; +METOPROLOL TART25 M1 PO; +MIRALAX17 G1 PO; +TRAMADOL HCL50 M1 PO
[2016-09-09 23:11] LABS: ABSOLUTE BASOPHIL COUNT 0 /CUMM (0.0-0.2); ABSOLUTE EOSINOPHIL COUNT 0.1 /CUMM (0.0-0.7); ABSOLUTE GRANULOCYTE CT 7.8 /CUMM (1.4-6.5); ABSOLUTE LYMPH COUNT 3.1 /CUMM (1.2-3.4); ABSOLUTE MONOCYTE COUNT 0.7 /CUMM (0.10-0.60); BASOPHIL % 0.4 % (0.0-2.0); EOSINOPHIL % 1.1 % (0-5); GRANULOCYTE % 66.5 % (42.2-75.2); MEAN CORPUSCULAR HGB 24.5 PG (27.0-31.0); MEAN CORPUSCULAR HGB CONC 32.2 G/DL (33.0-37.0); MEAN PLATELET VOLUME 9.7 FL (7.4-10.4); PLATELET COUNT 236 /CUMM (130-400); RBC DISTRIBUTION WIDTH 17.4 % (11.5-14.5)
[2016-09-09 23:16] LABS: WHITE BLOOD CELL COUNT 11.7 /CUMM (4.8-10.8)
--- NOTE | 2016-09-09 23:47 | ED GENERAL ADULT ---
History of Present Illness General Chief Complaint: General Adult Stated Complaint: HEART RACING, S/P GASTRIC BYPASS 09/01 Source: patient Exam Limitations: no limitations Allergies Coded Allergies: metformin (From GLUMETZA) (Mild, RASH SPECIFICALLY FROM GLUMETZA 08/24/15) pecan nut (Mild, RASH 08/24/15) Triage Note: PT TO ED C/O FEELING HEART RACING. STATES THAT WITH ANY EXERTION, HER HEART RATE GOES UP INTO 130'S. WAS TAKING 100 MG METOPROLOL DAILY PRIOR TO GASTRIC SLEEVE ON 09/01. WAS GIVEN EXTRA METOPROLOL DURING AND IMMEDIATLY AFTER SX, HR WAS DOWN INTO THE 40'S SO DOSE WAS REDUCED TO 25 MG BID. HAS BEEN TAKING THAT FOR 5 DAYS. HEART RACING STARTED TODAY. ALSO C/O CRAMPS IN BILATERAL LE, RT WORSE THAN LEFT, OFF AND ON, WORSE WITH WALKING OR SITTING WITH FEET UP. Triage Nurses Notes Reviewed? yes Onset: Gradual Duration: day(s): (4) Timing: remote history Injury Environment: home Severity: moderate No Modifying Factors: none : No Patient currently breastfeeds: No HPI: Patient is a 21-year-old female with history of hypertension and tachycardia presenting to the emergency department with chief complaint of elevated heart rate 4 days. She recently had a gastric sleeve done on September 01. She had episode of tachycardia while in the hospital and was put on a higher dose of metoprolol. She had an episode of bradycardia so they reduce her dosing to 25 mg twice a day. They did a CTA 4 days ago to rule out pulmonary embolus which was negative. Patient denying any chest pain. She does report intermittent palpitations that's present with exertion. No shortness of breath. Denies any sputum production. No upper respiratory congestion. Denies any fevers or chills. (MAHENDRA ARMENDARIZ,HENOK) Vital Signs & Intake/Output Vital Signs & Intake/Output ED Intake and Output 09/11 0000 09/10 1200 Intake Total 1000 Output Total Balance 1000 Intake, IV 1000 Reconcile Medications Enoxaparin Sodium (Lovenox) 40 MG/0.4 ML SYRINGE 1 SYR SC DAILY DVT PROPHYLAXSIS PATIENT HAS PERSCRIPTION AT HOME Hydrocodone/Acetaminophen (Hycet 7.5 MG-325 MG/15 Ml Soln) 7.5 MG-325 MG/15 ML SOLUTION 15 ML PO Q4-6P PRN PAIN Medroxyprogesterone Acetate (Provera) 10 MG TABLET 1 TAB PO DAILY HORMONE ( Reported) Metoprolol Tartrate 25 MG TABLET 25 MG PO BID svt Pantoprazole Sodium (Protonix) 40 MG TABLET.DR 1 TAB PO DAILY ulcer risk reduction (Reported) Tramadol HCl 50 MG TABLET 1 TAB PO Q6P PRN pain cush tablet (KEELEY FARLEY,MARIELA) Past History Travel History Traveled to [place] past 21 day No Medical History Any Pertinent Medical History? 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 No (HENOK MEDINA) Review of Systems Review of Systems Constitutional: Reports: no symptoms. Comments Review of systems: See HPI, All other systems negative. Constitutional, no chills fever or weight loss HEENT: No visual changes no sore throat no congestion Cardiovascular: No chest pain ,orthopnea or ankle swelling Skin, no jaundice no rashes Respiratory: No dyspnea cough sputum or hemoptysis GI: No nausea no vomiting : No dysuria No hematuria Muscle skeletal: no back pain, no neck pain, Neurologic: No numbness no confusion Psych: No stress anxiety or depression,. Heme/endocrine: No bruising no bleeding no polyuria or polydipsia Immunology: No splenectomy or history of AIDS (HENOK MEDINA) Physical Exam Physical Exam General Appearance: well developed/nourished, no apparent distress, alert, awake , obese Comments: Obese person in no acute distress HEENT: Pupils equally round and reactive to light and accommodation. Nose is atraumatic. External auditory canal and Tympanic membranes clear. Pharynx normal. No swelling or edema. Neck: Supple, no lymphadenopathy, normal range of motion without pain or tenderness Back: Nontender, no CVA tenderness. Cardiovascular: Regular rate and rhythms no murmurs rubs or gallops, normal JVP- comes tachycardic with standing and ambulation. Respiratory: Chest nontender. No respiratory distress.breath sounds clear to auscultation bilaterally Abdomen: Soft, OBESE, nontender nondistended, no appreciable organomegaly. Normal bowel sounds. No ascites. Surgical incisions of the abdomen seemed to be healing without problems. No surrounding erythema or edema. Extremity: No edema, no calf tenderness to palpation, normal and equal pulses. Negative Homans sign. Neuro: Alert oriented x3 Skin: No appreciable rash on exposed skin, skin is warm and dry. Psych: Mood and affect is normal, memory and judgment is normal. Core Measures ACS in differential dx? Yes CVA/TIA Diagnosis: No Severe Sepsis Present: No Septic Shock Present: No (MAHENDRA ARMENDARIZ,HENOK) Progress Differential Diagnoses I considered the following diagnoses in my evaluation of the patient: Pulmonary embolus, sinus tachycardia, SVT, atrial fibrillation, dehydration, electrolyte abnormality, postop complication, ACS Plan of Care: Orders Procedure Date/time Status Add-on Test (ER Only) 09/09 2309 Active MAGNESIUM 09/09 2257 Complete EKG 09/09 2234 Active TROPONIN LEVEL 09/09 2233 Complete HUMAN BETA HCG SCREEN 09/09 2233 Complete COMPREHENSIVE METABOLIC PANEL 09/09 2233 Complete CBC WITHOUT DIFFERENTIAL 09/09 2233 Complete Current Medications Sig/Cierra Start time Last Medication Dose Stop Time Status Admin Metoprolol Tartrate 5 MG ONCE ONE 09/10 2344 CAN (Lopressor) 09/10 2346 Laboratory Tests 09/09/162257: Anion Gap 15, Estimated GFR > 60, BUN/Creatinine Ratio 13.3, Glucose 85, Calcium 9.8, Magnesium 1.8, Total Bilirubin 0.7, AST 20, ALT 56 H, Alkaline Phosphatase 102, Troponin I < 0.01, Total Protein 7.3, Albumin 4.1, Globulin 3.2, Albumin/ Globulin Ratio 1.3, Total Beta HCG NEGATIVE, CBC w Diff NO MAN DIFF REQ, RBC 5.80 H, MCV 76.0 L, MCH 24.5 L, RDW 17.4 H, MPV 9.7, Gran % 66.5, Lymphocytes % 26.4, Monocytes % 5.6, Eosinophils % 1.1, Basophils % 0.4, Absolute Granulocytes 7.8 H, Absolute Lymphocytes 3.1, Absolute Monocytes 0.7 H, Absolute Eosinophils 0.1, Absolute Basophils 0, PUBS MCHC 32.2 L Initial ED EKG: SINUS TACHYCARDIA AT 101 BPM Hand-Off Endorsed To: MARIELA MINA MD Endorsed Time: 44 Pending: other Comments: No acute distress. Normal sinus rhythm on exam. When patient ambulates her pulse goes up to 130. It feels regular. Patient will be medicated with Lopressor, IV hydration. Patient does report decreased by mouth intake today, getting use to liquid diet. Patient will be signed out to Dr. Stanton pending reevaluation after IV hydration. Patient did just have a CTA to rule out pulmonary embolus 4 days ago which was negative. Patient also has remote history of similar symptoms prior to surgery as well. (HENOK MEDINA) Departure Departure Disposition: HOME OR SELF CARE Departure Forms: Customer Survey General Discharge Information (HENOK MEDINA) Departure Time of Disposition: 346 Condition: Stable Clinical Impression Primary Impression: Tachycardia Referrals: MANDY FARLEY,CALEB Herrera (PCP/Family) NIKOLAS CHEUNG MD Additional Instructions: Increase metoprolol to 50 mg 2 times a day PA/HARNESS REPAIRER Co-Sign Statement Statement: ED Attending supervision documentation- x I saw and evaluated the patient. I have also reviewed all the pertinent lab results and diagnostic results. I agree with the findings and the plan of care as documented in the PA's/HARNESS REPAIRER's documentation. [] I have reviewed the ED Record and agree with the PA's/HARNESS REPAIRER's documentation. [] Additions or exceptions (if any) to the PAs/HARNESS REPAIRER's note and plan are summarized below: [] (MARIELA MINA MD) Critical Care Note Critical Care Note Critical Care Time: 30-74 min (HENOK MEDINA)
[2016-09-10] MEDS ORDERED: PROVERA10 MG PO (01:47)
[2016-09-10 04:35] VITALS: BP 124/58
== END 2016-09-10 04:35 ==
LOC: ERH 22:05
PROVIDERS: Emergency Medicine
DX: R00.0 Tachycardia, unspecified (principal); I10 Essential (primary) hypertension
CPT/HCPCS: 93005; 93010; 96374

== ENCOUNTER 2016-12-14 14:29 | Emergency (ER) | payer OTHER ==
[~2016-12-14] VITALS: Ht 175.3 cm; Wt 155.6 kg
[~2016-12-14 14:29] MED LIST changes: +PROVERA10 MG PO
[2016-12-14 14:46] VITALS: BP 137/81
--- NOTE | 2016-12-14 16:26 | ED SKIN/ALLERGY COMPLAINT ---
History of Present Illness General Chief Complaint: Skin Rash/ Abcess Stated Complaint: PER PT "LUMP ON LOWER BACK/TAIL BONE" Source: patient Exam Limitations: no limitations Vital Signs & Intake/Output Vital Signs & Intake/Output Vital Signs Date Time Temp Pulse Resp B/P B/P Pulse O2 O2 Flow FiO2 Mean Ox Delivery Rate 12/14 1446 97.2 73 20 137/81 98 Room Air Allergies Coded Allergies: metformin (From GLUMETZA) (Mild, RASH SPECIFICALLY FROM GLUMETZA 08/24/15) pecan nut (Mild, RASH 08/24/15) Reconcile Medications Cephalexin (Keflex) 500 MG CAPSULE 1 CAP PO BID CELLULITIS Cyclobenzaprine HCl 5 MG TABLET 1 TAB PO AD MUSCLE RELAXER (Reported) Ferrous Sulfate (IRON) 325 MG (65 MG IRON) TABLET 1 TAB PO DAILY SUPPLEMENT ( Reported) Medroxyprogesterone Acetate 150 MG/ML SYRINGE 1 ML IM Q3M CONTROL ( Reported) Metoprolol Succinate 100 MG TAB.ER.24H 1 TAB PO DAILY HEART (Reported) Multivitamin (Multi-Day Vitamins) 1 EACH TABLET 1 TAB PO DAILY SUPPLEMENT ( Reported) Sulfamethoxazole/Trimethoprim (Bactrim Ds Tablet) 800 MG-160 MG TABLET 1 TAB PO BID CELLULITIS Triage Note: PT TO ED C/O "LUMP" TO BOTTOM OF TAIL BONE X 1 WEEK. PT HAS H/O ABSCESSES IN THE PAST. Triage Nurses Notes Reviewed? yes Onset: Gradual Duration: constant Timing: recent history Severity: severe Severity Numbers: 7 : No Patient currently breastfeeds: No HPI: Patient is a 21-year-old female who presents emergency room with a one-week history of gradually worsening tailbone erythema warmth and tenderness. Patient was evaluated at urgent care facility and was advised to present to emergency room for concerns of antibiotic prescriptions. Denies any discharge denies any fever chills or trauma. (LARISSA MEJIA) Past History Travel History Traveled to [place] past 21 day No Medical History Any Pertinent Medical History? 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 No (LARISSA MEJIA) Review of Systems Review of Systems Constitutional: Denies: chills, fever. EENTM: Reports: no symptoms. Respiratory: Reports: no symptoms. Cardiovascular: Reports: no symptoms. GI: Reports: no symptoms. Genitourinary: Reports: no symptoms. Musculoskeletal: Reports: no symptoms. Skin: Reports: see HPI, erythema. Neurological/Psychological: Reports: no symptoms. Hematologic/Endocrine: Reports: no symptoms. Immunologic/Allergic: Reports: no symptoms. All Other Systems: Reviewed and Negative (LARISSA MEJIA) Physical Exam Physical Exam General Appearance: no apparent distress, obese Skin: intact Comments: HEENT: Atraumatic, extraocular motion intact Neck: Supple, no lymphadenopathy Back: Nontender Respiratory: No respiratory distress Extremities: No edema, full range of motion Neuro: Alert and oriented x3 Psych: Mood affect normal, normal memory normal judgment. Diagram Body: 1) Noted 2 cm erythematous and tender region with no fluctuance no active discharge (LARISSA MEJIA) Progress Differential Diagnosis: abscess/cellulitis, contact dermatitis, lyme disease, meningitis/sepsis, urticaria Plan of Care: On initial examination patient has no concerns of abscess. I placed Surgical pen markings boarded the erythema Patient was afebrile. (LARISSA MEJIA) Departure Departure Disposition: HOME OR SELF CARE Condition: Stable Clinical Impression Primary Impression: Cellulitis of sacral region Referrals: MANDY FARLEY,CALEB Herrera (PCP/Family) Additional Instructions: As discussed begin the prescription of Bactrim and Keflex as directed for the full course. Prescriptions waiting a [facility] pharmacy. If symptoms worsen or if the redness significantly extends beyond the pen markers or IF YOU feel worsening pain fevers return to emergency room. If no better in 4 days follow- up with primary care doctor. Departure Forms: Customer Survey General Discharge Information Prescriptions: Current Visit Scripts Cephalexin (Keflex) 1 CAP PO BID #20 CAP Sulfamethoxazole/Trimethoprim (Bactrim Ds Tablet) 1 TAB PO BID #20 TAB (LARISSA MEJIA) PA/DIRECTOR SUPPLIER QUALITY Co-Sign Statement Statement: ED Attending supervision documentation- [] I saw and evaluated the patient. I have also reviewed all the pertinent lab results and diagnostic results. I agree with the findings and the plan of care as documented in the PA's/DIRECTOR SUPPLIER QUALITY's documentation. [x] I have reviewed the ED Record and agree with the PA's/DIRECTOR SUPPLIER QUALITY's documentation. [] Additions or exceptions (if any) to the PAs/DIRECTOR SUPPLIER QUALITY's note and plan are summarized below: [] (JOSE MORFIN DO
[2016-12-14] MEDS ORDERED: METOPROLOL SUC100 M2 PO (16:28)
[2016-12-14] MEDS ORDERED: MEDROXYPRO150 MG/11 IM (16:29)
[2016-12-14] MEDS ORDERED: IRON325 M3 PO (16:30)
[2016-12-14] MEDS ORDERED: CYCLOBENZAPRINE5 M2 PO (16:30)
[2016-12-14] MEDS ORDERED: MULTI-DAY VITA1 EACH PO (16:31)
[2016-12-14] MEDS ORDERED: BACTRIM DS TAB1 EACH PO (16:39)
[2016-12-14] MEDS ORDERED: KEFLEX500 M1 PO (16:39)
== END 2016-12-14 16:47 ==
LOC: ERH 14:29
DX: L03.312 Cellulitis of back [any part except buttock and flank] (principal)

== ENCOUNTER 2017-07-24 17:55 | Emergency (ER) | payer OTHER ==
[~2017-07-24] VITALS: Ht 175.3 cm; Wt 150.1 kg
[~2017-07-24 17:55] MED LIST changes: +BACTRIM DS TAB1 EACH PO; +CYCLOBENZAPRINE5 M2 PO; +IRON325 M3 PO; +KEFLEX500 M1 PO; +MEDROXYPRO150 MG/11 IM; +MULTI-DAY VITA1 EACH PO
[2017-07-24 18:13] LABS: ABSOLUTE BASOPHIL COUNT 0 /CUMM (0.0-0.2); ABSOLUTE EOSINOPHIL COUNT 0.1 /CUMM (0.0-0.7); ABSOLUTE GRANULOCYTE CT 5.5 /CUMM (1.4-6.5); ABSOLUTE LYMPH COUNT 2.5 /CUMM (1.2-3.4); ABSOLUTE MONOCYTE COUNT 0.6 /CUMM (0.10-0.60); BASOPHIL % 0.3 % (0.0-2.0); EOSINOPHIL % 0.9 % (0-5); GRANULOCYTE % 62.9 % (42.2-75.2); HEMATOCRIT 42.2 % (37-47); MEAN CORPUSCULAR HGB CONC 33.2 G/DL (33.0-37.0); MEAN CORPUSCULAR VOLUME 81.3 FL (81.0-99.0); MEAN PLATELET VOLUME 8.1 FL (7.4-10.4); PLATELET COUNT 260 /CUMM (130-400); RBC DISTRIBUTION WIDTH 13.7 % (11.5-14.5); WHITE BLOOD CELL COUNT 8.7 /CUMM (4.8-10.8)
--- NOTE | 2017-07-24 20:33 | ED CARDIAC/CP/PALPITATIONS ---
History of Present Illness General Chief Complaint: Chest Pain Stated Complaint: CP Source: patient, family, old records Exam Limitations: no limitations Vital Signs & Intake/Output Vital Signs & Intake/Output Vital Signs Date Time Temp Pulse Resp B/P B/P Pulse O2 O2 Flow FiO2 Mean Ox Delivery Rate 07/24 2046 Room Air 07/24 2040 98.6 54 20 123/63 100 Room Air 07/24 183 96.5 75 18 132/83 98 Room Air Room Air Allergies Coded Allergies: metformin (From GLUMETZA) (Mild, RASH SPECIFICALLY FROM GLUMETZA 08/24/15) pecan nut (Mild, RASH 08/24/15) Reconcile Medications Cephalexin (Keflex) 500 MG CAPSULE 1 CAP PO BID CELLULITIS Cyclobenzaprine HCl 5 MG TABLET 1 TAB PO AD MUSCLE RELAXER (Reported) Ferrous Sulfate (IRON) 325 MG (65 MG IRON) TABLET 1 TAB PO DAILY SUPPLEMENT ( Reported) Medroxyprogesterone Acetate 150 MG/ML SYRINGE 1 ML IM Q3M CONTROL ( Reported) Metoprolol Succinate 100 MG TAB.ER.24H 1 TAB PO DAILY HEART (Reported) Multivitamin (Multi-Day Vitamins) 1 EACH TABLET 1 TAB PO DAILY SUPPLEMENT ( Reported) Sulfamethoxazole/Trimethoprim (Bactrim Ds Tablet) 800 MG-160 MG TABLET 1 TAB PO BID CELLULITIS Triage Note: TRIAGE: 22 Y/O FEMALE PRESENTS C/O LIGHTHEADEDNESS, PALPITATIONS, NUMBNESS, HEADACHE, CHEST TIGHTNESS, SHORTNESS OF BREATH. HISTORY OF PALPITATIONS Triage Nurses Notes Reviewed? yes Onset: Abrupt Duration: minute(s):, better, resolved prior to arrival Timing: recent history Quality/Severity: mild, aching, palpitations Activities at Onset: none Aspirin Today: no aspirin today Associated Symptoms: denies : No Patient currently breastfeeds: No HPI: 22-year-old female presents emergency room for evaluation complaining of palpitations lightheadedness chest tightness that came on earlier this afternoon while at work. His symptoms resolved after a few minutes and she's been a symptomatically since. Patient is followed by Dr. Ellis after during preop for a gastric sleeve patient was found to have bradycardia and were Holter monitor however no cause was ever identified. She is currently on Toprol. No recent change in her medication no doll pain nausea vomiting Mother questions whether symptoms today could be secondary to anxiety she has been prescribed Ativan in the past (Yifan Gooden) Past History Travel History Traveled to [place] past 21 day No Medical History Any Pertinent Medical History? see below for history Neurological: NONE EENT: NONE Cardiovascular: SVT Respiratory: asthma Gastrointestinal: NONE Hepatic: NONE Renal: NONE Musculoskeletal: NONE Psychiatric: NONE Endocrine: diabetes, hypothyroidism Blood Disorders: NONE Cancer(s): NONE GLASS BENDER/Reproductive: NONE Other Medical Hx: "TOO MUCH INSULIN" OBESITY History of MRSA: No History of VRE: No History of CDIFF: No Surgical History Surgical History: SLEEVE GASTRECTOMY AUGUST 2016 Psychosocial History Who do you live with Family What is your primary language Pashto Tobacco Use: Never used ETOH Use: occasional use Illicit Drug Use: denies illicit drug use Family History Family History, If Any: MOTHER Anxiety disorder FH: diabetes mellitus Hyperlipidemia Hypertension Hx Contributory? No (Yifan Gooden) Review of Systems Review of Systems Constitutional: Reports: see HPI. Comments Review of systems: See HPI, All other systems negative. Constitutional, no chills no fever, HEENT: no sore throat no congestion Cardiovascular: chest pain, palpitation Skin: no rashes, no change in skin Respiratory: No dyspnea no cough no sputum GI: No nausea no vomiting, Muscle skeletal: No joint pain, no back pain Neurologic: , no headache Heme/endocrine: No bruising Immunology: No lymphadenopathy (Yifan Gooden) Physical Exam Physical Exam General Appearance: well developed/nourished, alert, awake Cardiovascular: regular rate/rhythm Comments: Well-developed well-nourished person in no acute distress HEENT: Normal EENT exam; PERRL, EOMI, HEAD is atraumatic. moist mucous membranes. Neck: Supple,normal range of motion Back: Full range of motion Cardiovascular: Regular rate and rhythms no murmur Respiratory: Chest nontender.There were no bony deformities, no asymmetry. No respiratory distress. Patient speaking in full complete sentences. Breath sounds clear to auscultation bilaterally: NO W/R/R Abdomen: Soft, nontender nondistended, no appreciable organomegaly. Normal bowel sounds. No rebound/guarding, Extremity: No edema, full range of motion of extremities Neuro: Alert oriented x3, motor sensory normal. There were no obvious focal neurologic abnormalities. Skin: No appreciable rash on exposed skin, skin is warm and dry. Psych: Mood and affect is normal, memory and judgment is normal. Core Measures ACS in differential dx? Yes CVA/TIA Diagnosis No Sepsis Present: No Sepsis Focused Exam Completed? No (Yifan Gooden) Progress Differential Diagnosis: AMI, atrial fibrillation, cholecystitis, pericarditis, pneumonia, pneumothorax, pulmonary embolism, PVCs/PACs Plan of Care: Orders Procedure Date/time Status Add-on Test (ER Only) 07/24 193 Active Add-on Test (ER Only) 07/24 1838 Active THYROID STIMULATING HORMONE 07/24 1800 Complete HUMAN BETA HCG SCREEN 07/24 1800 Complete D-DIMER 07/24 1800 Complete TROPONIN LEVEL 07/24 1758 Complete MAGNESIUM 07/24 1758 Complete COMPREHENSIVE METABOLIC PANEL 07/24 1758 Complete CHOLESTEROL 07/24 1758 Complete CBC WITHOUT DIFFERENTIAL 07/24 1758 Complete EKG 07/24 175 Active Laboratory Tests 07/24/17 1800: Anion Gap 14, Estimated GFR > 60, BUN/Creatinine Ratio 28.3 H, Glucose 92, Calcium 9.4, Magnesium 1.7, Total Bilirubin 0.3, AST 14, ALT 22, Alkaline Phosphatase 104, Troponin I < 0.01, Total Protein 6.9, Albumin 4.0, Globulin 2.9 , Albumin/Globulin Ratio 1.4, Cholesterol 165, TSH 1.250, Total Beta HCG NEGATIVE, D-Dimer High Sensitivty < 200, CBC w Diff NO MAN DIFF REQ, RBC 5.20, MCV 81.3, MCH 27.0, MCHC 33.2, RDW 13.7, MPV 8.1, Gran % 62.9, Lymphocytes % 28.6, Monocytes % 7.3, Eosinophils % 0.9, Basophils % 0.3, Absolute Granulocytes 5.5, Absolute Lymphocytes 2.5, Absolute Monocytes 0.6, Absolute Eosinophils 0.1, Absolute Basophils 0 I discussed with the patient and her mother all her lab results she is normal sinus on the monitor without any complaints d-dimer negative discussed the plan of care need for close follow-up with her primary care physician and manager casino this week and return precautions were discussed at length she feels comfortable plan Initial ED EKG: normal intervals, normal p-waves, normal QRS complex, normal sinus rhythm (Yifan Gooden) Departure Departure Time of Disposition: 2054 Disposition: HOME OR SELF CARE Condition: Stable Clinical Impression Primary Impression: Palpitations Referrals: Mahi Bingham (PCP/Family) Vivek Ellis MD Additional Instructions: Follow-up with your primary care physician and manager casino Dr. Ellis this week. Return anytime sooner with any concerns. Departure Forms: Customer Survey General Discharge Information (Yifan Gooden) PA/EXHAUST AND MUFFLER FITTER Co-Sign Statement Statement: ED Attending supervision documentation- [] I saw and evaluated the patient. I have also reviewed all the pertinent lab results and diagnostic results. I agree with the findings and the plan of care as documented in the PA's/EXHAUST AND MUFFLER FITTER's documentation. [X] I have reviewed the ED Record and agree with the PA's/EXHAUST AND MUFFLER FITTER's documentation. [] Additions or exceptions (if any) to the PAs/EXHAUST AND MUFFLER FITTER's note and plan are summarized below: [] (Katie FARLEY,Jakob Herrera) Critical Care Note Critical Care Note Critical Care Time: non-applicable (Yifan Gooden)
[2017-07-24 20:41] VITALS: BP 123/63
== END 2017-07-24 21:05 ==
LOC: ERH 17:55
PROVIDERS: Emergency Medicine
DX: R00.2 Palpitations (principal)
CPT/HCPCS: 93005; 93010

== ENCOUNTER 2017-10-23 16:42 | Emergency (ER) | payer OTHER ==
[~2017-10-23] VITALS: Ht 175.3 cm; Wt 156.5 kg
--- NOTE | 2017-10-23 18:25 | ED UPPER/LOWER EXTREMITY COMPL ---
History of Present Illness General Chief Complaint: General Adult Stated Complaint: "CATHETER ABLASION SURGERY SITE PROBLEMS" Source: patient, family (mother) Exam Limitations: no limitations Vital Signs & Intake/Output Vital Signs & Intake/Output Vital Signs Date Time Temp Pulse Resp B/P B/P Pulse O2 O2 Flow FiO2 Mean Ox Delivery Rate 10/23 2314 97.9 62 18 108/58 97 Room Air 10/23 2030 98.3 66 18 112/56 99 Room Air 10/23 1648 98.1 60 18 142/88 98 Room Air Allergies Coded Allergies: metformin (From GLUMETZA) (Mild, RASH SPECIFICALLY FROM GLUMETZA 08/24/15) pecan nut (Mild, RASH 08/24/15) Reconcile Medications Cephalexin (Keflex) 500 MG CAPSULE 1 CAP PO BID CELLULITIS Cyclobenzaprine HCl 5 MG TABLET 1 TAB PO AD MUSCLE RELAXER (Reported) Ferrous Sulfate (IRON) 325 MG (65 MG IRON) TABLET 1 TAB PO DAILY SUPPLEMENT ( Reported) Medroxyprogesterone Acetate 150 MG/ML SYRINGE 1 ML IM Q3M CONTROL ( Reported) Metoprolol Succinate 100 MG TAB.ER.24H 1 TAB PO DAILY HEART (Reported) Multivitamin (Multi-Day Vitamins) 1 EACH TABLET 1 TAB PO DAILY SUPPLEMENT ( Reported) Oxycodone HCl/Acetaminophen (Percocet 5-325 MG Tablet) 5 MG-325 MG TABLET 1 TAB PO 4XDP PRN PAIN TEN...[id number] Sulfamethoxazole/Trimethoprim (Bactrim Ds Tablet) 800 MG-160 MG TABLET 1 TAB PO BID CELLULITIS Triage Note: 10/18 PT STATES THAT SHE HAD A FAILED CARDIAC ABLASION, NOW COMPLAINS OF PAIN TO GROING AREA WHERE THEY ENTERED, " STATES THAT SHE HAS A LOT OF BRUISING , SWOLLEN WITH HARD LUMP UNDER AREA. STATES THAT BRUISING IS MUCH WORSE TODAY THAN YESTERDAY. CALLED MD AND WAS TOLD TO COME TO ER TO MAKE SURE SHE DOES NOT HAVE BLOOD CLOT TO THE AREA Triage Nurses Notes Reviewed? yes : No Patient currently breastfeeds: No HPI: 22-year-old female presents emergency department with her mother. She states that 5 days ago on Tuesday she was seen at [facility] by Dr. Quijano who performed a catheter ablation on her heart due to supraventricular tachycardia. They had gone through her right groin and she had been placed on bedrest for the next couple days. As of this morning patient was having a difficult time walking without being pain and had noted significant bruising along the right groin. She was told by the on-call provider that if she developed any of these symptoms she should come in to the emergency department. (Marianela Wolfe) Past History Travel History Traveled to [place] past 21 day No Medical History Any Pertinent Medical History? 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 No (Marianela Wolfe) Review of Systems Review of Systems Constitutional: Reports: no symptoms. EENTM: Reports: no symptoms. Respiratory: Reports: no symptoms. Cardiovascular: Reports: no symptoms. Gastrointestinal/Abdominal: Reports: no symptoms. Genitourinary: Reports: no symptoms. Musculoskeletal: Reports: see HPI. Skin: Reports: see HPI. Neurological/Psychological: Reports: no symptoms. Hematologic/Endocrine: Reports: no symptoms. Immunological: Reports: no symptoms. All Other Systems: Reviewed and Negative (Marianela Wolfe) Physical Exam Physical Exam General Appearance: well developed/nourished, no apparent distress, alert, awake , comfortable Head: atraumatic, normal appearance Eyes: Bilateral: normal appearance. Ears, Nose, Throat: hearing grossly normal Neck: normal inspection, full range of motion Cardiovascular/Respiratory: normal breath sounds, regular rate/rhythm Peripheral Pulses: 3+ dorsalis pedis (R), 3+ dorsalis pedis (L) Back: normal inspection, normal range of motion Neurologic/Tendon: normal sensation, normal motor functions Skin: right groin with several areas of ecchymosis, tender and firm to touch Diagram Legs Front/Back 1) (Marianela Wolfe) Progress Differential Diagnosis: pseudoaneurysm, thrombophlebitis Plan of Care: Orders Procedure Date/time Status EKG 10/23 1913 Active PARTIAL THROMBOPLASTIN TIME 10/23 1837 Complete PROTHROMBIN TIME 10/23 1837 Complete COMPREHENSIVE METABOLIC PANEL 10/23 1837 Complete CBC WITHOUT DIFFERENTIAL 10/23 1837 Complete Laboratory Tests 10/23/171924: Anion Gap 16, Estimated GFR > 60, BUN/Creatinine Ratio 22.5, Glucose 78, Calcium 9.6, Total Bilirubin 0.6, AST 18, ALT 26, Alkaline Phosphatase 96, Total Protein 7.7, Albumin 4.2, Globulin 3.5, Albumin/Globulin Ratio 1.2, PT 12.9 H, INR 1.18 , APTT 31, CBC w Diff NO MAN DIFF REQ, RBC 5.11, MCV 82.4, MCH 27.1, MCHC 32.9 L, RDW 13.2, MPV 8.3, Gran % 75.4 H, Lymphocytes % 20.3 L, Monocytes % 3.3, Eosinophils % 0.8, Basophils % 0.2, Absolute Granulocytes 8.8 H, Absolute Lymphocytes 2.4, Absolute Monocytes 0.4, Absolute Eosinophils 0.1, Absolute Basophils 0 22-year-old female presented to the emergency department reporting right groin pain in the area where a catheter was placed 5 days ago for catheter ablation of her heart due to supraventricular tachycardia. She was given IV Tylenol and Toradol during the course of the emergency room stay. The results of the CAT scan revealed a 6 cm subcutaneous inflammation likely hematoma. CT report states cannot assess venous thrombosis. Given exam findings very low likelihood of venous thrombosis. No swelling of bilateral extremities or edema. This was discussed with patient and family and patient was advised to call tomorrow morning for venous Doppler ultrasound as ultrasound is not present during exam. They are advised that if swelling in lower extremity should occur in the meantime or significant pain patient should return back to the emergency department sooner. They both understand the plan. This case and plan was discussed with Dr. Cuellar. 10/23/17 9:05 pm -patient resting comfortably in bed. States that the Tylenol did help with the pain however if she does move she feels pain again. Delay in CAT scan result, patient aware. 10/23/17 10:08 pm - patient reporting pain increasing to 8/10, given IV morphine. pending ct scan results. Diagnostic Imaging: Viewed by Me: CT Scan. Discussed w/RAD: CT Scan. Radiology Impression: PATIENT: LINDA ARSHAD PRESENT AGE: 22 PATIENT ACCOUNT NO: [id number] : 96 LOCATION: [facility] ORDERING PHYSICIAN: Marianela ARMENDARIZ SERVICE DATE: 10/23/17 EXAM TYPE: CAT - CT PELVIS W IV CONTRAST EXAMINATION: CT PELVIS WITH IV CONTRAST CLINICAL INFORMATION: Pseudoaneurysm versus blood clot. COMPARISON: None TECHNIQUE: Helical scanning was performed with submillimeter collimation through the pelvis with 95 mL of Optiray 320 intravenous contrast. Sagittal and coronal multiplanar 2-D reconstructions were obtained. DLP: 966 mGy-cm FINDINGS: PELVIS: Rectum and perirectal fat are clear. Urinary bladder is partially decompressed unopacified. Uterus and ovaries are prominent RIGHT more than LEFT, this is normal for patient's young age. OSSEOUS STRUCTURES: Pelvic bones, hip joints, sacrum and included lower lumbar spine are normal. INGUINAL REGION SOFT TISSUE: There is soft tissue subcutaneous edema and swelling RIGHT inguinal region might be related to direct injury. The area involved roughly measures 6 x [address] evidence of aneurysm. This is a nonenhanced CT scan, cannot assess for venous thrombosis. IMPRESSION: 1. Right inguinal region subcutaneous inflammation and soft tissue opacity roughly 3 x 6 cm could be subcutaneous hematoma from direct injury, versus cellulitis . No evidence of aneurysm. Please correlate clinically. 2. Nonenhanced CT scan, cannot assess for venous thrombosis, if clinically suspected suggest ultrasound. Venous Doppler. DICTATED BY: Prisca Lopez MD DATE/TIME DICTATED:10/23/172226 MAILS SUPERVISOR:YANY DATE/ TIME TRANSCRIBED:10/23/172226 CONFIDENTIAL, DO NOT COPY WITHOUT APPROPRIATE AUTHORIZATION. <Electronically signed in Other Vendor System> SIGNED BY: Prisca Lopez MD 10/23/172235 (Marianela Wolfe) Departure Departure Disposition: HOME OR SELF CARE Condition: Stable Clinical Impression Primary Impression: Subcutaneous hematoma Referrals: Mahi Bingham (PCP/Family) Additional Instructions: Take ibuprofen as needed for pain. Call tomorrow morning for ultrasound scheduling of the right groin and right lower extremity to rule out venous thrombosis. If any symptoms worsen, or change in nature, if one or both legs become swollen, or any concern for your well-being please return to the emergency department. Departure Forms: Customer Survey General Discharge Information Prescriptions: Current Visit Scripts Oxycodone HCl/Acetaminophen (Percocet 5-325 MG Tablet) 1 TAB PO 4XDP PRN PAIN #10 TAB TEN...[id number] (Marianela Wolfe) PA/WAD BLANKING PRESS ADJUSTER Co-Sign Statement Statement: ED Attending supervision documentation- [] I saw and evaluated the patient. I have also reviewed all the pertinent lab results and diagnostic results. I agree with the findings and the plan of care as documented in the PA's/WAD BLANKING PRESS ADJUSTER's documentation. [x] I have reviewed the ED Record and agree with the PA's/WAD BLANKING PRESS ADJUSTER's documentation. [] Additions or exceptions (if any) to the PAs/WAD BLANKING PRESS ADJUSTER's note and plan are summarized below: [] (Alisa FARLEY,Johnny Corcoran) ED Attending Observation Initial Observation Note: I have seen and personally examined LINDA ARSHAD on 10/23/17 at 2208. I agree with the current emergency department documentation. The disposition (admission or discharge) is uncertain at this time, she needs a period of observation for the following reason(s): The ED Nurse caring for this patient has been personally informed as to what the patient is being observed for. (Marianela Wolfe)
[2017-10-23 19:31] LABS: ABSOLUTE BASOPHIL COUNT 0 /CUMM (0.0-0.2); ABSOLUTE EOSINOPHIL COUNT 0.1 /CUMM (0.0-0.7); ABSOLUTE GRANULOCYTE CT 8.8 /CUMM (1.4-6.5); ABSOLUTE LYMPH COUNT 2.4 /CUMM (1.2-3.4); ABSOLUTE MONOCYTE COUNT 0.4 /CUMM (0.10-0.60); BASOPHIL % 0.2 % (0.0-2.0); EOSINOPHIL % 0.8 % (0-5); GRANULOCYTE % 75.4 % (42.2-75.2); HEMATOCRIT 42.1 % (37-47); MEAN CORPUSCULAR HGB 27.1 PG (27.0-31.0); MEAN CORPUSCULAR HGB CONC 32.9 G/DL (33.0-37.0); MEAN CORPUSCULAR VOLUME 82.4 FL (81.0-99.0); MEAN PLATELET VOLUME 8.3 FL (7.4-10.4); PLATELET COUNT 256 /CUMM (130-400); RBC DISTRIBUTION WIDTH 13.2 % (11.5-14.5); RED BLOOD CELL CT 5.11 /CUMM (4.20-5.40); WHITE BLOOD CELL COUNT 11.7 /CUMM (4.8-10.8)
[2017-10-23 19:41] LABS: PT 12.9 SEC (9.4-12.5); PTT 31 SEC (25-37)
--- NOTE | 2017-10-23 22:36 | CT SCAN REPORT ---
EXAMINATION: CT PELVIS WITH IV CONTRAST CLINICAL INFORMATION: Pseudoaneurysm versus blood clot. COMPARISON: None TECHNIQUE: Helical scanning was performed with submillimeter collimation through the pelvis with 95 mL of Optiray 320 intravenous contrast. Sagittal and coronal multiplanar 2-D reconstructions were obtained. DLP: 966 mGy-cm FINDINGS: PELVIS: Rectum and perirectal fat are clear. Urinary bladder is partially decompressed unopacified. Uterus and ovaries are prominent RIGHT more than LEFT, this is normal for patient's young age. OSSEOUS STRUCTURES: Pelvic bones, hip joints, sacrum and included lower lumbar spine are normal. INGUINAL REGION SOFT TISSUE: There is soft tissue subcutaneous edema and swelling RIGHT inguinal region might be related to direct injury. The area involved roughly measures 6 x [address] evidence of aneurysm. This is a nonenhanced CT scan, cannot assess for venous thrombosis. IMPRESSION: 1. Right inguinal region subcutaneous inflammation and soft tissue opacity roughly 3 x 6 cm could be subcutaneous hematoma from direct injury, versus cellulitis . No evidence of aneurysm. Please correlate clinically. 2. Nonenhanced CT scan, cannot assess for venous thrombosis, if clinically suspected suggest ultrasound. Venous Doppler.
[2017-10-23 23:14] VITALS: BP 108/58
[2017-10-23] MEDS ORDERED: PERCOCET 5-3251 EACH PO (23:21)
== END 2017-10-23 23:36 ==
LOC: ERH 16:42
PROVIDERS: Physician Assistant
DX: S30.1XXA Contusion of abdominal wall, initial encounter (principal); Y84.0 Cardiac catheterization as the cause of abnormal reaction of the patient, or of later complication, without mention of misadventure at the time of the procedure; Y93.9 Activity, unspecified; Y92.9 Unspecified place or not applicable
CPT/HCPCS: 93005; 93010; 96374; 96375; J0131; J1885